=== PATIENT | female | born 1950 | race Caucasian/White ===

== ENCOUNTER 2020-06-27 | Outpatient (REF) | payer OTHER, SELFPAY | END 2020-06-27 00:01 | disposition home or self-care (01) | LOC: CF | PROVIDERS: Visit Provider Internal Medicine | DX: R19.7 Diarrhea, unspecified (principal); K21.9 Gastro-esophageal reflux disease without esophagitis; E78.5 Hyperlipidemia, unspecified; E55.9 Vitamin D deficiency, unspecified; I83.009 Varicose veins of unspecified lower extremity with ulcer of unspecified site; L97.909 Non-pressure chronic ulcer of unspecified part of unspecified lower leg with unspecified severity | CPT/HCPCS: 87045; 87046 ==

== ENCOUNTER 2020-07-05 11:13 | Outpatient (REF) | payer OTHER, SELFPAY ==
[2020-07-05 14:55] LABS: Leukocytes Stool Qualitative NEGATIVE (NEGATIVE)
[2020-07-05 15:02] LABS: CDIFF Ag Negative (Negative); CDIFF Internal ctrl Dots and bkg OK (V); CDiff Toxin Negative (Negative)
== END 2020-07-05 11:14 | disposition home or self-care (01) ==
LOC: CF 11:13
PROVIDERS: Visit Provider Internal Medicine
DX: R19.7 Diarrhea, unspecified (principal)
CPT/HCPCS: 87324; 87449; 89055

== ENCOUNTER 2020-09-17 06:51 | Outpatient (REF) | payer OTHER, SELFPAY ==
[2020-09-17 11:40] LABS: Hemoglobin 11.9 g/dl (12.0-16.0); Mean Corpuscular HGB Conc 31.3 g/dl (31.0-35.0); Mean Corpuscular Hemoglobin 29.2 pg (27.0-33.0); Mean Corpuscular Volume 93.1 fL (80-98); Mean Platelet Volume 10.9 fL (9.4-12.3); Platelet Count 261 X10*3/uL (160-400); Red Blood Count 4.08 X10*6/uL (4.20-5.50); Red Cell Distribution Width 13.7 % (11.0-16.0); White Blood Count 5.3 X10*3/uL (4.8-10.8)
[2020-09-17 12:13] LABS: Vitamin D 25-OH Total 31.5 ng/mL (>30)
[2020-09-17 12:20] LABS: Alanine Aminotransferase 17 U/L (0-31); Albumin Level 4.1 g/dL (3.5-5.0); Alkaline Phosphatase 79 U/L (39-117); Anion Gap 13 (12-20); Aspartate Amino Transferase 22 U/L (5-31); Bilirubin Total 0.3 mg/dL (0.0-1.0); Blood Urea Nitrogen 21 mg/dL (9-16); Calcium 9.5 mg/dL (8.4-10.2); Carbon Dioxide 26 mmol/L (22-29); Chloride 106 mmol/L (96-108); Cholesterol 209 mg/dL; Estimated Glomerular Filt Rate > 60; Glucose Fasting 114 mg/dL (60-99); HDL Cholesterol 96 mg/dL; LDL Cholesterol Calculated 102 mg/dl; Potassium 4.7 mmol/l (3.3-5.1); Sodium 140 mmol/L (135-145); Total Protein 6.4 g/dL (6.5-8.0); Triglycerides 59 mg/dL
== END 2020-09-17 06:52 | disposition home or self-care (01) ==
LOC: HO.HMGCLDS 06:51
PROVIDERS: PCP Internal Medicine; Visit Provider Internal Medicine
DX: I83.009 Varicose veins of unspecified lower extremity with ulcer of unspecified site (principal); L97.909 Non-pressure chronic ulcer of unspecified part of unspecified lower leg with unspecified severity; K21.9 Gastro-esophageal reflux disease without esophagitis; E55.9 Vitamin D deficiency, unspecified; R19.7 Diarrhea, unspecified; E78.5 Hyperlipidemia, unspecified
CPT/HCPCS: 36415; 80053; 80061; 82306; 84443; 85027

== ENCOUNTER 2020-10-21 08:26 | Outpatient (REF) | payer OTHER, SELFPAY ==
--- NOTE | ~2020-10-21 | US_ITS ---
EXAMINATION: US ABDOMEN COMPLETE CLINICAL INFORMATION: Abdominal pain. COMPARISON: Report from outside ultrasound November 2017. No images available. TECHNIQUE: Real-time imaging of the abdominal viscera. FINDINGS: PANCREAS: Normal. ABDOMINAL AORTA: The proximal, mid, and distal segments are normal in caliber. INFERIOR VENA CAVA: Visualized portions are normal. LIVER: Liver echotexture is normal. The liver is normal in size and contour. There is a 3 x 1.8 x 2.6 cm hyperechoic lesion in the central right lobe of the liver No other focal liver lesion is seen. There is no intrahepatic biliary duct dilatation seen. GALLBLADDER: Normal. The gallbladder is physiologically distended without evidence of stones, sludge, polyps, wall thickening or pericholecystic fluid. COMMON BILE DUCT: Normal in caliber measuring 0.5 cm in diameter. RIGHT KIDNEY: Normal. No hydronephrosis. No renal calculi or focal parenchymal lesions. The kidney measures 12.5 cm in maximum dimension. LEFT KIDNEY: Normal. No hydronephrosis. No renal calculi or focal parenchymal lesions. The kidney measures 11 cm in maximum dimension. SPLEEN: Normal. The spleen measures 9.2 cm in maximum dimension. FREE FLUID: None. US/US abdomen complete IMPRESSION: 3 x 1.8 x 2.6 cm hyperechoic lesion in the central right lobe of the liver. This may represent a hemangioma. This is not described in previous ultrasound report November 2017. If there is clinical history of liver disease or known malignancy, further evaluation with liver MRI should be considered.
== END 2020-10-21 08:27 | disposition home or self-care (01) ==
LOC: HO.HMGCX 08:26
PROVIDERS: PCP Internal Medicine; Visit Provider Internal Medicine
DX: R10.9 Unspecified abdominal pain (principal)
CPT/HCPCS: 76700

== ENCOUNTER 2020-10-30 18:48 | Outpatient (REF) | payer OTHER, SELFPAY ==
--- NOTE | ~2020-10-30 | MR_ITS ---
EXAMINATION: MR ABDOMEN WITHOUT AND WITH CONTRAST CLINICAL INFORMATION: History abdominal pain. Ultrasound notes subcapsular hyperechoic echogenicity in liver adjacent to krishna hepatis measuring 3.0 x 2.6 x 1.8 cm. COMPARISON: Abdominal ultrasound 10/21/2020 TECHNIQUE: MR abdomen was performed without and with use of 8.5 mL intravenous Gadavist gadolinium contrast. Postcontrast images are performed in multiphase dynamic sequences. Imaging was performed in 3 planes. FINDINGS: LUNG BASES: The visualized lung bases are unremarkable. LIVER, GALLBLADDER, AND BILIARY TREE: The liver is normal in size and smooth in contour and normal in parenchymal signal. The finding on ultrasound corresponds to focal hepatic steatosis adjacent to krishna hepatis posterior left lobe segment 4 measuring approximately 2.3 x 1.3 cm. This shows decreased signal on out of phase imaging. No abnormal enhancement. There are 3 small cysts in the liver, largest segment 4B left lobe subcapsular measuring 1.8 cm. There is also a subcentimeter cyst segment 2 left lobe and segment 5 moe lateral right lobe. There is no enhancing hepatic lesion or lesion with delayed washout. No intrahepatic ductal dilatation. The gallbladder is unremarkable with no evidence of gallbladder wall thickening, or obvious pericholecystic inflammatory changes. PANCREAS: Unremarkable. SPLEEN: Normal. ADRENAL GLANDS: Normal. KIDNEYS AND URETERS: The kidneys are normal in size, shape, and enhance symmetrically. No hydronephrosis. No perinephric stranding. GASTROINTESTINAL TRACT: Small sliding hiatal hernia just under 3 cm. No bowel obstruction or inflammatory changes in bowel or mesentery. No ascites or fluid collection. ABDOMINAL WALL: Small fat-containing umbilical hernia, under 3 cm. LYMPH NODES: No lymphadenopathy. VASCULAR: Unremarkable. OSSEOUS STRUCTURES: Marrow signal normal. MR/MR abdomen wo/w con IMPRESSION: 1. Finding on recent ultrasound corresponds to focal hepatic steatosis/focal fatty infiltration. There are 3 simple cysts in the liver, largest 1.8 cm. No enhancing lesion. 2. Small sliding hiatal hernia. Small fat-containing umbilical hernia.
== END 2020-10-30 18:49 | disposition home or self-care (01) ==
LOC: HO.MRI 18:48
PROVIDERS: Visit Provider Internal Medicine
DX: R16.0 Hepatomegaly, not elsewhere classified (principal)
CPT/HCPCS: 74183; A9585

== ENCOUNTER → 2020-11-19 11:32 | Outpatient (BNVA) | payer OTHER, SELFPAY | PROVIDERS: PCP Internal Medicine; Visit Provider Nurse Practitioner ==

== ENCOUNTER → 2020-12-03 13:18 | Outpatient (BNVA) | payer OTHER, SELFPAY | PROVIDERS: PCP Internal Medicine; Visit Provider Nurse Practitioner ==

== ENCOUNTER → 2021-01-02 08:19 | Outpatient (BNVA) | payer OTHER, SELFPAY | PROVIDERS: PCP Internal Medicine; Visit Provider Nurse Practitioner ==

== ENCOUNTER 2021-01-13 10:01 | Day surgery (SDC) | payer OTHER, SELFPAY ==
--- NOTE | 2021-01-09 13:35 | P.CONAN_ITS ---
Documented by User: Kay Green 01/09/21 13:36 HPI - Anesthesia Eval Consult details Narrative: 70yo F for Upper Endoscopy PMFSH Active Problems Active Problems: All Active Problems (Updated 01/02/21 @ 09:27 by JONNY Ruvalcaba) WOODS (nonalcoholic steatohepatitis) (Acute) Epigastric pain (Acute) Hyperglycemia (Acute) Osteoporosis (Acute) Abdominal pain (Acute) Cellulitis (Acute) Hyperlipidemia (Acute) Venous ulcer (Acute) History of mammogram (Acute) GERD (gastroesophageal reflux disease) (Acute) Vitamin D deficiency (Acute) Diarrhea (Acute) Past Medical History Medical History Abdominal pain Diarrhea GERD (gastroesophageal reflux disease) History of mammogram Hyperglycemia Hyperlipidemia Osteoporosis Venous ulcer Vitamin D deficiency Family History Family History Mother No problems noted. Sister Breast cancer Brother Parkinson disease Father Gallbladder cancer Surgical History Surgical History H/O colonoscopy History of left knee replacement Status post right knee replacement Social History Social History Household Members Other:: [employer]- LIVES WITH ANOTHER SISTER Alcohol intake: current Alcohol intake frequency: a few times a week Smoking Status: Never smoker Use of substances other than those prescribed or required for medical reasons: No Advance Directives: No Advance Directives Information Provided: No Advance Directives on File: No Nutrition Risks: No Nutritional Risk Current occupational status: employed 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 Allergies Allergy/AdvReac Type Severity Reaction Status Date / Time atorvastatin [Lipitor] Allergy Unknown Myalgia Verified 01/02/21 08:19 codeine Allergy Unknown unknown Verified 01/02/21 08:19 Home Medications Medication Instructions Recorded Confirmed Last Taken Type rosuvastatin 5 mg tablet 5 mg PO DAILY 06/10/20 11/04/20 Unknown History calcium carbonate 400 mg calcium 400 mg PO BEDTIME 12/03/20 Unknown History (1,000 mg) chewable tablet Exam Exam Date and Time: January 09, 2021 1335 Assessment and Plan Assessment Anesthesia Assessment: Chart Reviewed Documented by User: Alexandra Jay 01/13/21 11:16 [facility] Past Medical History Medical History Abdominal pain Diarrhea GERD (gastroesophageal reflux disease) History of mammogram Hyperglycemia Hyperlipidemia Osteoporosis Venous ulcer Vitamin D deficiency Family History Family History Mother No problems noted. Sister Breast cancer Brother Parkinson disease Father Gallbladder cancer Family history of problems with anesthesia: No Surgical History Surgical History H/O colonoscopy History of left knee replacement Status post right knee replacement History of Problems with Anesthesia: No Social History Social History Household Members Other:: [employer]- LIVES WITH ANOTHER SISTER Alcohol intake: current Alcohol intake frequency: a few times a week Smoking Status: Never smoker Use of substances other than those prescribed or required for medical reasons: No Advance Directives: No Advance Directives Information Provided: No Advance Directives on File: No Nutrition Risks: No Nutritional Risk Current occupational status: employed 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 Allergies Allergy/AdvReac Type Severity Reaction Status Date / Time atorvastatin [Lipitor] Allergy Unknown Myalgia Verified 01/02/21 08:19 codeine Allergy Unknown unknown Verified 01/02/21 08:19 Home Medications Medication Instructions Recorded Confirmed Last Taken Type rosuvastatin 5 mg tablet 5 mg PO DAILY 06/10/20 11/04/20 Unknown History calcium carbonate 400 mg calcium 400 mg PO BEDTIME 12/03/20 Unknown History (1,000 mg) chewable tablet Exam Height,Weight and Vital Signs: Vital Signs Temp Pulse Resp BP Pulse Ox 01/13/21 10:53 97.8 F 75 19 149/74 H 100 Airway Mallampati Class: II TM Dist: >3cm Neck ROM: Full Partial: Lower Heart: RRR+ murmur Lungs: CTAB Assessment and Plan Assessment Anesthesia Assessment: Anesthesia Plan Discussed and Chart Reviewed Final Anesthetic Review NPO: Yes ASA Class: III Final Preanesthetic Review: No Changes in Pt Med Stat, Meds/Allgs Chart Reviewed, Consent Obtained/Reviewed and Anes Risks/Benef Reviewed Patient Risk: Intermediate Procedure Risk: Low Assessment/Block/Sedation in SS: Assess/Block/Sedation-SS Anesthetic Plan Anesthetic Plan: MAC: Disposition: Standard PACU
--- NOTE | 2021-01-13 10:50 | MHC.SHP ---
Pre-Procedural Eval Section B Chief Complaint: Epigastric Pain Relevant Family History (Specify if Yes): No Relevant Social History: None Present Medications: see Short Stay Collaborative assessment Medical History: Significant History (Abdominal pain Diarrhea GERD (gastroesophageal reflux disease) History of mammogram Hyperglycemia Hyperlipidemia Osteoporosis Venous ulcer Vitamin D deficiency) History of Previous Operations: Relevant previous surgery/procedure and date(s) (knee surgeries) Allergies: Allergies Allergy/AdvReac Type Severity Reaction Status Date / Time atorvastatin [Lipitor] Allergy Unknown Myalgia Verified 01/02/21 08:19 codeine Allergy Unknown unknown Verified 01/02/21 08:19 Review of Systems Sugical H&P ROS: Negative: Constitution, Cardiovascular, Respiratory, Neurological, Psychiatric, Hem-Onc, Allergic/Immunologic, Gastrointestinal, Genitourinary, Musculoskeletal, Integumentary, Endocrine and Eyes/Ears/Nose/Throat Exam Surgical H&P Exam: Normal: HEENT, Normal: Heart, Normal: Lungs, Normal: Extremities, Normal: Abdomen, Normal: Skin and Normal: Neurological Plan Diagnosis/Plan: Unchanged I have reviewed the history and physical and performed a pertinent physical examination on my patient. No changes have occurred unless specified.
[2021-01-13 10:53] VITALS: BP 149/74; PULSE 75; RESP 19; TEMP 36.6; O2SAT 100; BMI 31.8
--- NOTE | 2021-01-13 11:26 | PM.OP ---
Brief Operative Note Date of Service: 01/13/21 Pre-op diagnosis: epigastric pain Post-op diagnosis: same Procedure: see op note Surgeon: Rolando Irving MD Anesthesia: MAC Was an Corporate Communications Manager used for this Procedure?: No Estimated blood loss (mL): 0 Condition: stable Disposition: PACU
--- NOTE | 2021-01-13 11:26 | W.PM.OPN ---
Operative Note Operative Note Date of Service: 01/13/21 Narrative: Procedure Description: EGD FLEXIBLE TRANSORAL UPPER GASTROINTESTINAL ENDOSCOPY UPPER ENDOSCOPY Consent: Indications for the procedure and potential complications of bleeding, perforation, reaction to medications and missed diagnosis were discussed with the patient and informed consent was obtained. Instrument: Olympus GIF H 190 J mid size upper endoscope Monitoring: Vital signs and clinical assessment, continuous EKG monitoring, Pulse oximetry, Carbon Dioxide monitoring and blood pressure monitoring were done throughout the procedure. Procedure: The patient was placed in the left lateral decubitis position and pre-procedure medications were administered and a bite block was placed. The endoscope was inserted into the mouth and advanced under direct vision to the third part of duodenum. A careful inspection was made as the upper endoscope was withdrawn including a retroflexed examination of the proximal stomach; Findings and interventions are described below. Findings: Larynx:normal Esophagus: GE junction at 34 cm, diaphragm hiatus at 37 cm, consistent with 3 cm sliding hiatal hernia, no varices or esophagitis. Non obstructive schatzki ring noted Stomach: Patchy gastric erythema. Biopsies were obtained. Grade 2 flap valve on retroflexed examination of the cardia. Duodenum: Normal bulb and descending duodenum, bx taken Intervention: Biopsies as noted above Impression/Findings: gastritis schatzki ring hiatal hernia PLAN: reflux precautions await bx results
[2021-01-13 11:41] VITALS: BP 109/68; PULSE 75; RESP 12; TEMP 36.2; O2SAT 99
[2021-01-13 11:56] VITALS: BP 138/68; PULSE 74; RESP 20; TEMP 36.2; O2SAT 100
== END 2021-01-13 12:34 | disposition home or self-care (01) ==
PROVIDERS: PCP Internal Medicine; Visit Provider Internal Medicine Gastroenterology
PROC: 0DJ08ZZ Inspection of Upper Intestinal Tract, Via Natural or Artificial Opening Endoscopic (ICD-10-PCS; CPT 43235; principal; 2021-01-13 11:40)
DX: K22.2 Esophageal obstruction (principal); K29.50 Unspecified chronic gastritis without bleeding; K44.9 Diaphragmatic hernia without obstruction or gangrene; K21.9 Gastro-esophageal reflux disease without esophagitis; R73.9 Hyperglycemia, unspecified
CPT/HCPCS: 43239; 88305; 88342

== ENCOUNTER → 2021-02-13 07:51 | Outpatient (REF) | payer OTHER, SELFPAY ==
--- NOTE | ~2021-02-13 | NM_ITS ---
EXAMINATION: NM HIDA SCAN WITH CCK CLINICAL INFORMATION: Epigastric pain. COMPARISON: MRI abdomen 10/31/2020 TECHNIQUE: Following intravenous administration of 5 mCi of 99m technetium, mebrofenin was administered and imaging over the right upper quadrant was obtained up to 60 minutes. At 60 minutes, 4.6 mcg of CCK was given, and further imaging was obtained up to 30 minutes. FINDINGS: There is normal hepatic uptake without any focal defects. There is prompt visualization of gallbladder by 11 minutes and small bowel by 20 minutes. Post CCK, the gallbladder ejection fraction at 30 minutes is 81%. NM/NM hepatobiliary w pharm IMPRESSION: Normal hepatic uptake. Patent cystic duct. Patent CBD. Normal gallbladder ejection fraction of 81% at 30 minutes post CCK injection.
== END ==
LOC: HO.NUCMED 07:51
PROVIDERS: Visit Provider Nurse Practitioner
DX: R10.13 Epigastric pain (principal)
CPT/HCPCS: 78227; A9537

== ENCOUNTER → 2021-02-24 08:57 | Outpatient (BNVA) | payer OTHER, SELFPAY | PROVIDERS: Visit Provider Nurse Practitioner ==

== ENCOUNTER 2021-03-26 06:53 | Outpatient (REF) | payer OTHER, SELFPAY ==
[2021-03-26 11:21] LABS: Hematocrit 32.8 % (37-47); Hemoglobin 9.9 g/dl (12.0-16.0); Mean Corpuscular HGB Conc 30.2 g/dl (31.0-35.0); Mean Corpuscular Hemoglobin 25.6 pg (27.0-33.0); Mean Corpuscular Volume 84.8 fL (80-98); Mean Platelet Volume 10.2 fL (9.4-12.3); Platelet Count 293 X10*3/uL (160-400); Red Blood Count 3.87 X10*6/uL (4.20-5.50); Red Cell Distribution Width 14.5 % (11.0-16.0); White Blood Count 5.3 X10*3/uL (4.8-10.8)
[2021-03-26 11:37] LABS: Estimated Average Glucose 137 mg/dL; Hemoglobin A1c % 6.4 %
[2021-03-26 12:12] LABS: Vitamin D 25-OH Total 30.5 ng/mL (>30)
[2021-03-26 12:15] LABS: Alanine Aminotransferase 10 U/L (0-31); Albumin Level 3.9 g/dL (3.5-5.0); Alkaline Phosphatase 89 U/L (39-117); Anion Gap 13 (12-20); Aspartate Amino Transferase 19 U/L (5-31); Bilirubin Total 0.3 mg/dL (0.0-1.0); Blood Urea Nitrogen 15 mg/dL (9-16); Carbon Dioxide 26 mmol/L (22-29); Chloride 108 mmol/L (96-108); Cholesterol 202 mg/dL; Estimated Glomerular Filt Rate > 60; Glucose Fasting 108 mg/dL (60-99); HDL Cholesterol 98 mg/dL; LDL Cholesterol Calculated 93 mg/dl; Potassium 4.6 mmol/L (3.3-5.1); Sodium 142 mmol/L (135-145); Total Protein 6.3 g/dL (6.5-8.0); Triglycerides 59 mg/dL
== END 2021-03-26 06:54 | disposition home or self-care (01) ==
LOC: HO.HMGCLDS 06:53
PROVIDERS: PCP Internal Medicine; Visit Provider Internal Medicine
DX: E55.9 Vitamin D deficiency, unspecified (principal); E78.5 Hyperlipidemia, unspecified; K21.9 Gastro-esophageal reflux disease without esophagitis; M81.0 Age-related osteoporosis without current pathological fracture; R73.9 Hyperglycemia, unspecified
CPT/HCPCS: 36415; 80053; 80061; 82306; 83036; 85027

== ENCOUNTER 2021-03-31 08:51 | Outpatient (REF) | payer OTHER, SELFPAY ==
[2021-03-31 11:35] LABS: Iron 34 mcg/dL (30-160); Percent Iron Saturation 8 % (15-50); Total Iron Binding Capacity 407 mcg/dL (228-428); Unsaturated Iron Binding 373 ug/dL
== END 2021-03-31 08:52 | disposition home or self-care (01) ==
LOC: HO.HMGCLDS 08:51
PROVIDERS: PCP Internal Medicine; Visit Provider Internal Medicine
DX: E78.5 Hyperlipidemia, unspecified (principal); R73.9 Hyperglycemia, unspecified
CPT/HCPCS: 36415; 83540

== ENCOUNTER → 2021-04-04 15:49 | Outpatient (BNVA) | payer OTHER, SELFPAY | PROVIDERS: PCP Internal Medicine; Referring Provider Internal Medicine; Visit Provider Nurse Practitioner ==

== ENCOUNTER → 2021-05-01 15:26 | Outpatient (BNVA) | payer OTHER, SELFPAY | PROVIDERS: PCP Internal Medicine; Referring Provider Internal Medicine; Visit Provider Surgery Vascular Surgery ==

== ENCOUNTER 2021-05-21 07:57 | Outpatient (REF) | payer OTHER, SELFPAY ==
--- NOTE | ~2021-05-21 | US_ITS ---
EXAMINATION: US LOWER EXTREMITY VENOUS (REFLUX EXAM), BILATERAL CLINICAL INDICATION: Lower extremity varicose veins. COMPARISON: None. TECHNIQUE: Color flow triplex imaging and compression Doppler was performed to evaluate both the deep and the superficial systems bilaterally. To evaluate the superficial system, the examination was performed in the upright position. Color-flow Doppler ultrasound and compression ultrasound were utilized. In addition, maneuvers were utilized to demonstrate reflux. FINDINGS: 1. DEEP VENOUS ULTRASOUND OF THE RIGHT LOWER EXTREMITY: Common Femoral Vein: Compressible, normal respiratory variation and augmented flow. Femoral vein: Compressible, normal color flow and augmentation. Popliteal Vein: Compressible, normal augmentation. Deep Reflux: There is no evidence of reflux in the deep system in either the common femoral vein or the popliteal vein. There is no evidence of a Welch's cyst. 2. SUPERFICIAL ULTRASOUND WITH DOPPLER OF RIGHT LOWER EXTREMITY GREAT SAPHENOUS VEIN: Saphenofemoral junction: 0.6 cm; Reflux: 1.1 seconds Proximal thigh: 0.7 cm; Reflux: 1.2 seconds Mid thigh: 0.6 cm; Reflux: 2 seconds Above knee: 0.6 cm; Reflux: 3 seconds At knee: 0.3 cm; Reflux: No evidence of reflux. Below knee: 0.5 cm; Reflux: No evidence of reflux. Mid calf: 0.2 cm; Reflux: No evidence of reflux. Ankle: 0.2 cm; Reflux: No evidence of reflux. DUPLICATED GREAT SAPHENOUS VEIN: Medial: 0.4 cm, no reflux SMALL SAPHENOUS VEIN: Saphenopopliteal junction: 0.2 cm; No evidence of reflux. Mid calf: 0.3 cm; No evidence of reflux. Distal calf: 0.3 cm; No evidence of reflux. VEIN OF GIACOMINI: None Imaged. PERFORATORS: Proximal calf: 0.4 cm, no reflux Midcalf: 0.3 cm, no reflux VARICOSITIES: Mid thigh: 0.3 cm, no reflux Distal thigh: 0.5 cm, greater than 1.3 seconds of reflux Proximal calf: 0.4 cm, no reflux 3. DEEP VENOUS ULTRASOUND OF THE LEFT LOWER EXTREMITY: Common Femoral Vein: Compressible, normal respiratory variation and augmented flow. Femoral vein: Compressible, normal color flow and augmentation. Popliteal Vein: Compressible, normal augmentation. Deep Reflux: There is greater than 1.1 seconds of reflux within the left common femoral vein. There is no evidence of a Welch's cyst. 4. SUPERFICIAL ULTRASOUND WITH DOPPLER OF LEFT LOWER EXTREMITY GREAT SAPHENOUS VEIN: Saphenofemoral junction: 1.1 cm; Reflux: 0.6 seconds of reflux. Proximal thigh: 0.6 cm; Reflux: 0.7 cm of reflux. Mid thigh: 0.5 cm; Reflux: 2.5 seconds of reflux Above knee: 0.4 cm; Reflux: 3.2 seconds At knee: 0.2 cm; Reflux: 2.2 seconds Below knee: 0.3 cm; Reflux: No evidence of reflux. Mid calf: 0.2 cm; Reflux: No evidence of reflux. Ankle: 0.1 cm; Reflux: 2.6 seconds DUPLICATED GREAT SAPHENOUS VEIN: Medial: 0.3 cm, no reflux SMALL SAPHENOUS VEIN: Saphenopopliteal junction: 0.2 cm; No evidence of reflux. Mid calf: 0.2 cm; No evidence of reflux. Distal calf: 0.2 cm; No evidence of reflux. VEIN OF GIACOMINI: None Imaged. PERFORATORS: Midcalf: 0.2 cm, no reflux VARICOSITIES: Mid thigh: 0.3 cm, greater than 2.6 seconds of reflux Distal thigh: 0.3 cm, greater than 2.3 seconds of reflux At knee: 0.3 cm, greater than 2.6 seconds of reflux US/US venous duplex LE BI IMPRESSION: 1. Bilateral great saphenous venous insufficiency beginning at the junction. 2. No evidence of small saphenous venous insufficiency. 3. Bilateral refluxing varicosities. 4. Deep venous insufficiency involving the left common femoral vein. 5. No evidence of DVT.
== END 2021-05-21 07:58 | disposition home or self-care (01) ==
LOC: HO.US 07:57
PROVIDERS: PCP Internal Medicine; Visit Provider Surgery Vascular Surgery
DX: I83.893 Varicose veins of bilateral lower extremities with other complications (principal)
CPT/HCPCS: 93970

== ENCOUNTER → 2021-06-03 12:55 | Outpatient (BNVA) | payer OTHER, SELFPAY | PROVIDERS: PCP Internal Medicine; Visit Provider Surgery Vascular Surgery ==

== ENCOUNTER → 2021-06-10 08:47 | Outpatient (BNVA) | payer OTHER, SELFPAY | PROVIDERS: PCP Internal Medicine; Referring Provider Internal Medicine; Visit Provider Nurse Practitioner ==

== ENCOUNTER 2021-06-11 09:18 | Outpatient (REF) | payer OTHER, SELFPAY ==
[2021-06-11 09:52] LABS: Amylase 37 U/L (28-100); Blood Urea Nitrogen 12 mg/dL (9-16); Estimated Glomerular Filt Rate > 60; Lipase 6 U/L (8-78)
== END 2021-06-11 09:19 | disposition home or self-care (01) ==
LOC: HO.LAB 09:18
PROVIDERS: PCP Internal Medicine; Visit Provider Nurse Practitioner
DX: R10.9 Unspecified abdominal pain (principal)
CPT/HCPCS: 36415; 82150; 82565; 83690; 84520

== ENCOUNTER 2021-06-11 16:20 | Emergency (ER) | payer OTHER, SELFPAY ==
--- NOTE | ~2021-06-11 | XR_ITS ---
EXAMINATION: XR CHEST CLINICAL INFORMATION: Chest pain. COMPARISON: None TECHNIQUE: Frontal view of the chest was obtained. FINDINGS: The lungs are clear. The cardiomediastinal silhouette is normal in size. There is no pleural effusion or pneumothorax. No acute osseous abnormality. XR/XR chest 1V IMPRESSION: No acute cardiopulmonary findings.
--- NOTE | 2021-06-11 16:33 | ECG_ITS ---
Test Reason : CHEST PAIN Blood Pressure : / mmHG Vent. Rate : 089 BPM Atrial Rate : 089 BPM P-R Int : 178 ms QRS Dur : 086 ms QT Int : 334 ms P-R-T Axes : 043 009 005 degrees QTc Int : 406 ms Normal sinus rhythm Minimal voltage criteria for LVH, may be normal variant Borderline ECG No previous ECGs available Referred By: Generic ED Physician Electronically Signed By:LORENZA STRATTON
[2021-06-11 16:45] LABS: MANUAL DIFF FLAG NO
[2021-06-11 16:46] LABS: Basophils Percent Auto 0.6 % (0-2); Eosinophils Absolute Auto 0.1 X10*3/uL (0.0-0.4); Hematocrit 34.6 % (37-47); Hemoglobin 10.7 g/dl (12.0-16.0); Imm Gran Abs Auto 0.02 X10*3/uL (0.00-0.03); Imm Gran Pct Auto 0.3 % (0.0-0.4); Lymphocytes Absolute Auto 0.9 X10*3/uL (1.2-4.9); Lymphocytes Percent Auto 13.7 % (20-40); Mean Corpuscular HGB Conc 30.9 g/dl (31.0-35.0); Mean Corpuscular Hemoglobin 25.1 pg (27.0-33.0); Mean Platelet Volume 9.7 fL (9.4-12.3); Monocytes Absolute Auto 0.6 X10*3/uL (0.1-1.2); Monocytes Percent Auto 8.3 % (2-11); Neutrophils Absolute Auto 5.2 X10*3/uL (2.0-8.3); Neutrophils Percent Auto 76.1 % (45-73); Platelet Count 398 X10*3/uL (160-400); Red Blood Count 4.27 X10*6/uL (4.20-5.50); Red Cell Distribution Width 15.3 % (11.0-16.0); White Blood Count 6.8 X10*3/uL (4.8-10.8)
[2021-06-11 17:01] LABS: Anion Gap 12 (12-20); Blood Urea Nitrogen 12 mg/dL (9-16); Calcium 10.5 mg/dL (8.4-10.2); Carbon Dioxide 26 mmol/L (22-29); Chloride 106 mmol/L (96-108); Estimated Glomerular Filt Rate > 60; Glucose Random 117 mg/dL (60-115); Potassium 4.5 mmol/L (3.3-5.1); Sodium 139 mmol/L (135-145)
[2021-06-11 17:04] LABS: Troponin-I High Sensitivity < 3.5 ng/L (<3.5-17.0)
[2021-06-11 18:16] VITALS: BP 150/78; PULSE 88; RESP 16; TEMP 36.3; O2SAT 98; BMI 31.8
--- NOTE | 2021-06-11 19:50 | ED_ITS ---
HPI - Chest Pain General Chief Complaint: Chest Pain Stated Complaint: Chest pain Time Seen by Provider: 06/11/21 19:50 Source: patient Mode of arrival: ambulatory Limitations: no limitations History of Present Illness HPI narrative: Patient with history of sliding hiatal hernia seen in endoscopy 01/24 complaining of epigastric and mid chest pain off and on for last 3 months her PCP os her to go to the hospital for further evaluation patient denies any chest pain at this time pain gets worse after eating no radiation of pain to the jaw or arm no diaphoresis no nausea no vomiting patient has no known coronary ar kayla disease. Patient taking Protonix 80 mg daily for hiatal hernia Related Data Home Medications Medication Instructions Recorded Confirmed cholecalciferol (vitamin D3) 50 100 mcg PO DAILY 03/31/21 03/31/21 mcg (2,000 unit) capsule lactobacillus combination no.4 3 3,000 mmu cells PO DAILY 03/31/21 03/31/21 billion cell capsule (Probiotic) iron, carbonyl 15 mg chewable 15 mg PO BEDTIME 06/10/21 tablet (Iron Chews) Previous Rx's Medication Instructions Recorded rosuvastatin 5 mg tablet 5 mg PO DAILY #90 tab 04/01/21 pantoprazole 40 mg tablet,delayed 40 mg PO BID 30 Days #60 tab 04/03/21 release (Protonix) simethicone 180 mg capsule 180 mg PO BID PRN 30 Days #60 cap 04/04/21 Allergies Allergy/AdvReac Type Severity Reaction Status Date / Time atorvastatin [Lipitor] Allergy Unknown Myalgia Verified 06/10/21 08:49 codeine Allergy Unknown unknown Verified 06/10/21 08:49 Review of Systems Review of Systems: Yes all other systems are reviewed and are negative [facility] Past Medical History Medical History Anemia Diarrhea GERD (gastroesophageal reflux disease) History of mammogram Hyperglycemia Hyperglycemia Hyperlipidemia Osteoporosis Venous insufficiency Venous ulcer Vitamin D deficiency Surgical History H/O colonoscopy History of left knee replacement Status post right knee replacement Family History Family History Mother No problems noted. 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 Oriented X3. No acute distress. Eyes: No pallor or icterus ENT: Pharynx normal. Oral Mucosa moist Neck: Normal inspection. Neck supple. CVS: Normal heart rate and rhythm. Pulses normal. Respiratory: No respiratory distress. Equal air entry bilateral, no wheezing/rales/rhonchi Abdomen: Soft and mild epigastric tenderness. Bowel sounds are present, no mass palpable, no CVA tenderness Skin: Skin warm and dry. Normal skin color. Normal skin turgor. Extremities: No lower extremity edema. No calf tenderness Neuro: Oriented X 3. MDM - Chest Pain Medical Records Data Attestation: I reviewed the patient's medical records. Lab Data Attestation: I reviewed the patient's lab results. Result diagrams: 06/11/21 16:35 06/11/21 16:35 Labs: Lab Results 06/11/21 06/11/21 06/11/21 Range/Units 16:35 16:35 16:35 WBC 6.8 (4.8-10.8) X10*3/uL RBC 4.27 (4.20-5.50) X10*6/uL Hgb 10.7 L (12.0-16.0) g/dl Hct 34.6 L (37-47) % MCV 81.0 (80-98) fL MCH 25.1 L (27.0-33.0) pg MCHC 30.9 L (31.0-35.0) g/dl RDW 15.3 (11.0-16.0) % Plt Count 398 D (160-400) X10*3/uL MPV 9.7 (9.4-12.3) fL Immature Gran % (Auto) 0.3 (0.0-0.4) % Neut % (Auto) 76.1 H (45-73) % Lymph % (Auto) 13.7 L (20-40) % [place] % (Auto) 8.3 (2-11) % Eos % (Auto) 1.0 (0-4) % Baso % (Auto) 0.6 (0-2) % Lymph # (Auto) 0.9 L (1.2-4.9) X10*3/uL [place] # (Auto) 0.6 (0.1-1.2) X10*3/uL Eos # (Auto) 0.1 (0.0-0.4) X10*3/uL Baso # (Auto) 0.0 (0.0-0.2) X10*3/uL Abs Immat Gran (auto) 0.02 (0.00-0.03) X10*3/uL Absolute Neuts (auto) 5.2 (2.0-8.3) X10*3/uL Absolute Nucleated RBC 0.000 (0.0-0.012) X10*3/uL Nucleated RBC % (auto) 0.0 (0.0-0.2) /100WBC Sodium 139 (135-145) mmol/L Potassium 4.5 (3.3-5.1) mmol/L Chloride 106 (96-108) mmol/L Carbon Dioxide 26 (22-29) mmol/L Anion Gap 12 (12-20) BUN 12 (9-16) mg/dL Creatinine 0.79 (0.5-1.4) mg/dL Estim Creat Clear Calc TNP Estimated GFR > 60 Random Glucose 117 H (60-115) mg/dL Calcium 10.5 H (8.4-10.2) mg/dL Troponin I High Sens < 3.5 (<3.5-17.0) ng/L ECG Data ECG #1: Attestation: I personally reviewed and interpreted this ECG as follows: Interpretation: Normal sinus rhythm heart rate 89 beats per minute LVH no acute ST-T change and no acute ischemia Discharge Plan Discharge Clinical Impression: Hernia, hiatal Chest pain Qualifiers: Chest pain type: precordial pain Qualified Code(s): R07.2 - Precordial pain Patient Disposition: Home, Self-Care Instructions: Chest Pain (ED), Hiatal Hernia (ED) Additional Instructions: Continue medication and follow with arboreal scientist Also follow with museum informatics specialist if chest pain continues for further evaluation including stress test Prescriptions: No Action rosuvastatin 5 mg tablet 5 mg PO DAILY Qty: 90 RF: 3 pantoprazole [Protonix] 40 mg tablet,delayed release (DR/EC) 40 mg PO BID 30 Days Qty: 60 RF: 3 cholecalciferol (vitamin D3) 50 mcg (2,000 unit) capsule 100 mcg PO DAILY RF: 0 Probiotic 3 billion cell capsule 3,000 mmu cells PO DAILY RF: 0 simethicone 180 mg capsule 180 mg PO BID PRN (Reason: abdominal distention) 30 Days Qty: 60 RF: 3
== END 2021-06-11 20:16 | disposition home or self-care (01) ==
PROVIDERS: Emergency Provider Internal Medicine; PCP Internal Medicine
DX: K44.9 Diaphragmatic hernia without obstruction or gangrene (principal); R07.2 Precordial pain; Z79.899 Other long term (current) drug therapy
CPT/HCPCS: 36415; 71045; 80048; 84484; 85025; 93005; 99283

== ENCOUNTER 2021-06-16 10:16 | Emergency (ER) | payer OTHER, SELFPAY ==
--- NOTE | ~2021-06-16 | CT_ITS ---
EXAMINATION: CT ABDOMEN AND PELVIS WITH CONTRAST CLINICAL INFORMATION: Abdominal distention COMPARISON: Abdominal ultrasound and abdominal MRI October 2020 TECHNIQUE: Multidetector volumetric images were obtained from the superior aspect of the liver through the pubic symphysis following administration 85 mL of Omnipaque 350 intravenous contrast. Sagittal and coronal reformatted images were obtained on the technologist's workstation. Oral contrast: Yes This CT examination was performed using dose optimization techniques as appropriate, variously including the following: *Automated exposure control *Adjustment of mA and/or kV according to patient size (this includes techniques or standardized protocols for targeted exams where dose is matched to indication/reason for exam; i.e. extremities or head) *Use of iterative reconstruction technique DLP: 7-8 mGy-cm FINDINGS: LUNG BASES: There are tiny bilateral pleural effusions. LIVER, GALLBLADDER, AND BILIARY TREE: The liver is normal in size, shape, and attenuation. There is a small 5 x 10 mm low-attenuation lesion in the right lobe of the liver axial image 22 series 3. There is a 1.8 cm low-attenuation lesion in the medial segment of the left lobe of the liver axial image 28 series 3. These probably represent small cysts. No other focal liver lesion is seen. There are peritoneal soft tissue nodules adjacent to the gallbladder. The gallbladder is otherwise unremarkable. PANCREAS: Pancreas appears atrophic. There is a cyst or a cystic lesion in the pancreas for example measuring 1.7 cm at the junction of the body and tail the pancreas axial image 26 series 3. There is also question of a smaller a cyst or cystic lesions in the uncinate process of the head of the pancreas, largest measuring 1 cm axial image 33 series 3. The main pancreatic duct does not appear dilated. SPLEEN: Unremarkable. ADRENAL GLANDS: Unremarkable. KIDNEYS AND URETERS: The kidneys are normal in size, shape, and attenuation. No hydronephrosis, hydroureter, or calculi seen. No perinephric stranding. BLADDER: Unremarkable. GASTROINTESTINAL TRACT: There is diverticulosis of the colon. There is wall thickening of the cecum. There is a cystic area seen within measures 2 cm axial image 63 series 3 The appendix is not identified. The small bowel is unremarkable. There is a small amount of ascites in the abdomen and pelvis. There are numerous peritoneal soft tissue nodules, largest measuring 2.2 cm in the right lower quadrant axial image 69 series 3 and 1.4 x 2.4 cm region of the greater omentum axial image 35 series 3. There also appears to be thickening and diffuse nodularity of the greater omentum. Findings are suggestive of peritoneal carcinomatosis. There is an esophageal hernia. ABDOMINAL WALL: There is a small umbilical hernia containing fat. LYMPH NODES: There multiple enlarged right lower quadrant small bowel mesentery lymph nodes. The largest measures 2 cm axial image 50 series 3. VASCULAR: Unremarkable. PELVIC VISCERA: Unremarkable. OSSEOUS STRUCTURES: There is mild anterior subluxation of L4 with respect L5. There is lower lumbar spine facet arthritis. There is a 7 x 10 mm sclerotic lesion in the left iliac bone. CT/CT abdomen pelvis w con IMPRESSION: Wall thickening and cystic mass in the cecum. The appendix is not identified. There are enlarged right lower quadrant small bowel mesentery lymph nodes, ascites and numerous peritoneal nodules suggestive of peritoneal carcinomatosis. Primary appendiceal tumor, primary cecal tumor and carcinoid should be considered. Atrophic-appearing pancreas. Small cysts or cystic lesions in the pancreas. Probable liver cysts. Mild diverticulosis of the colon.
[2021-06-16 10:32] VITALS: BP 154/94; PULSE 102; RESP 18; TEMP 37.2; O2SAT 98; BMI 31.8
--- NOTE | 2021-06-16 11:37 | ED.ABDPAIN ---
HPI - Abdominal Pain General Chief Complaint: Abdominal Pain Stated Complaint: abd pain Time Seen by Provider: 06/16/21 11:36 Source: patient Mode of arrival: ambulatory Limitations: no limitations History of Present Illness HPI narrative: patient with known hiatal hernia, has had nausea, just not eating well. Patient states she has 2-3 weeks of symptoms. Patient states that she noticed recent tarry stool. Had blood around the stool. Patient was seen night for her heart and was discharged home MD elicited complaint: abdominal pain Pertinent past history: other (hiatal hernia) Onset (ago): month(s) Pain Consistency: constant Location: diffuse Severity: mild Exacerbating factors: nothing Relieving factors: nothing Associated symptoms: nausea Related Data Home Medications Medication Instructions Recorded Confirmed cholecalciferol (vitamin D3) 50 100 mcg PO DAILY 03/31/21 03/31/21 mcg (2,000 unit) capsule lactobacillus combination no.4 3 3,000 mmu cells PO DAILY 03/31/21 03/31/21 billion cell capsule (Probiotic) iron, carbonyl 15 mg chewable 15 mg PO BEDTIME 06/10/21 tablet (Iron Chews) Previous Rx's Medication Instructions Recorded rosuvastatin 5 mg tablet 5 mg PO DAILY #90 tab 04/01/21 pantoprazole 40 mg tablet,delayed 40 mg PO BID 30 Days #60 tab 04/03/21 release (Protonix) simethicone 180 mg capsule 180 mg PO BID PRN 30 Days #60 cap 04/04/21 barium sulfate 2 % (w/v) oral 450 ml PO DIRECTED 1 Days #900 06/13/21 suspension (Readi-Cat 2) ml sennosides 8.6 mg capsule (senna) 17.2 mg PO BEDTIME 30 Days #60 cap 06/13/21 Allergies Allergy/AdvReac Type Severity Reaction Status Date / Time atorvastatin [Lipitor] Allergy Unknown Myalgia Verified 06/10/21 08:49 codeine Allergy Unknown unknown Verified 06/10/21 08:49 Review of Systems Constitutional: Reports no additional constitutional complaints Eyes: Reports no additional eye complaints Denies dizziness Cardiovascular: Reports no additional cardiovascular complaints Respiratory: Reports as per HPI Gastrointestinal: Reports no additional gastrointestinal complaints Genitourinary: Reports no additional female genitourinary complaints Musculoskeletal: Reports no additional musculoskeletal complaints Skin/Breast: Denies rash Reports system reviewed and no additional complaints, except as documented, Denies dizziness and Denies Sensory deficit (Neuro) Psychiatric: Denies anxiety Physical Exam Vital Signs: Vital Signs: Last Vital Signs Temp 97.8 F 06/16/21 14:19 Pulse 11 L 06/16/21 14:19 Resp 18 06/16/21 14:19 BP 146/77 H 06/16/21 14:19 Pulse Ox 96 06/16/21 14:19 Body Mass Index 31.8 Const: General: healthy appearing Nutritional Appearance: average body habitus Orientation/consciousness: oriented to person and patient oriented x3 Limitations: no limitations HENMT: Head: Yes normal to inspection Ears: external ears normal General nose exam: Normal external nose present Mouth: Normal oral and palatal mucosa present and oropharynx normal Throat: Yes posterior oropharynx normal Eyes: General: appearance normal, both eyes and all related structures Neck: Other: supple Neck: Yes normal visual inspection Chest: Chest palpation & inspection: normal inspection of the chest Resp: Auscultation: clear to auscultation bilaterally Cardio: Jugular venous distension: no JVD Rate: regular rate Rhythm: regular rhythm Heart sounds: S1 normal heart sound present and S2 normal heart sound present GI: Inspection: Yes normal to inspection Palpation (GI): Soft to palpation, nontender and No hepatosplenomegaly present Auscultation: normal bowel sounds : General: Yes no CVA tenderness Back/Spine/Pelvis: Back: no CVA tenderness Skin: General skin exam: no rashes or lesions noted Neuro: General: oriented to person and patient oriented x3 Cranial nerves: Yes CN's II-XII intact bilaterally Motor exam (neuro): 5/5 motor strength present throughout Sensory Exam: No Sensory deficit (Neuro) Extrem: General: Yes normal to inspection Psych: Appearance: grossly normal Course Reevaluation(s) Reevaluation #1: Discussed with Dr. Dejesus who will see patient in outpatient Time: 15:49 MDM - Abdominal Pain Lab Data Result diagrams: 06/16/21 12:43 06/16/21 12:43 Labs: Lab Results 06/16/21 06/16/21 06/16/21 Range/Units 12:43 12:43 13:47 WBC 7.7 (4.8-10.8) X10*3/uL RBC 3.99 L (4.20-5.50) X10*6/uL Hgb 10.1 L (12.0-16.0) g/dl Hct 32.1 L (37-47) % MCV 80.5 (80-98) fL MCH 25.3 L (27.0-33.0) pg MCHC 31.5 (31.0-35.0) g/dl RDW 15.3 (11.0-16.0) % Plt Count 390 (160-400) X10*3/uL MPV 10.0 (9.4-12.3) fL Immature Gran % (Auto) 0.4 (0.0-0.4) % Neut % (Auto) 80.5 H (45-73) % Lymph % (Auto) 10.1 L (20-40) % [place] % (Auto) 8.1 (2-11) % Eos % (Auto) 0.5 (0-4) % Baso % (Auto) 0.4 (0-2) % Lymph # (Auto) 0.8 L (1.2-4.9) X10*3/uL [place] # (Auto) 0.6 (0.1-1.2) X10*3/uL Eos # (Auto) 0.0 (0.0-0.4) X10*3/uL Baso # (Auto) 0.0 (0.0-0.2) X10*3/uL Abs Immat Gran (auto) 0.03 (0.00-0.03) X10*3/uL Absolute Neuts (auto) 6.2 (2.0-8.3) X10*3/uL Absolute Nucleated RBC 0.000 (0.0-0.012) X10*3/uL Nucleated RBC % (auto) 0.0 (0.0-0.2) /100WBC Sodium 139 (135-145) mmol/L Potassium 4.5 (3.3-5.1) mmol/L Chloride 106 (96-108) mmol/L Carbon Dioxide 24 (22-29) mmol/L Anion Gap 14 (12-20) BUN 7 L (9-16) mg/dL Creatinine 0.69 (0.5-1.4) mg/dL Estim Creat Clear Calc 73.4 Estimated GFR > 60 Random Glucose 105 (60-115) mg/dL Calcium 9.8 D (8.4-10.2) mg/dL Total Bilirubin 0.5 (0.0-1.0) mg/dL Direct Bilirubin < 0.2 (0.0-0.5) mg/dL AST 26 (5-31) U/L ALT 21 (0-31) U/L Alkaline Phosphatase 72 (39-117) U/L Total Protein 5.8 L (6.5-8.0) g/dL Albumin 3.4 L (3.5-5.0) g/dL Lipase 4 L (8-78) U/L Urine Color YELLOW Urine Appearance CLEAR Urine pH 6.0 (5.0-8.0) Ur Specific [place] <= 1.005 (1.005-1.025) Urine Protein NEG (NEG-TRACE) MG/DL Urine Glucose (UA) NEG (NEG) MG/DL Urine Ketones 15 (NEG) MG/DL Urine Blood NEG (NEG) Urine Nitrite NEG (NEG) Ur Leukocyte Esterase NEG (NEG) Imaging Data CT scan - abdomen: Radiologist's impression: IMPRESSION: Wall thickening and cystic mass in the cecum. The appendix is not identified. There are enlarged right lower quadrant small bowel mesentery lymph nodes, ascites and numerous peritoneal nodules suggestive of peritoneal carcinomatosis. Primary appendiceal tumor, primary cecal tumor and carcinoid should be considered. Atrophic-appearing pancreas. Small cysts or cystic lesions in the pancreas. Probable liver cysts. Mild diverticulosis of the colon. Discharge Plan Discharge Clinical Impression: Carcinoma of cecum, Appendix carcinoma Patient Disposition: Home, Self-Care Instructions: Colorectal Cancer (DC) Prescriptions: No Action rosuvastatin 5 mg tablet 5 mg PO DAILY Qty: 90 RF: 3 pantoprazole [Protonix] 40 mg tablet,delayed release (DR/EC) 40 mg PO BID 30 Days Qty: 60 RF: 3 senna 8.6 mg capsule 17.2 mg PO BEDTIME 30 Days Qty: 60 RF: 1 Readi-Cat 2 2 % (w/v) suspension 450 ml PO DIRECTED 1 Days Qty: 900 RF: 0 cholecalciferol (vitamin D3) 50 mcg (2,000 unit) capsule 100 mcg PO DAILY RF: 0 Probiotic 3 billion cell capsule 3,000 mmu cells PO DAILY RF: 0 simethicone 180 mg capsule 180 mg PO BID PRN (Reason: abdominal distention) 30 Days Qty: 60 RF: 3 Referrals: Melissa Graham MD [Primary Care Provider] - 1 week Lillian Lee MD [Physician] - 3 days Roldan Ayala MD [Physician] - 3 days [facility] Past Medical History Medical History Anemia Diarrhea GERD (gastroesophageal reflux disease) History of mammogram Hyperglycemia Hyperglycemia Hyperlipidemia Osteoporosis Venous insufficiency Venous ulcer Vitamin D deficiency Surgical History H/O colonoscopy History of left knee replacement Status post right knee replacement Family History Family History Mother No problems noted. 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
[2021-06-16 12:44] VITALS: BP 143/79; PULSE 95; RESP 18; TEMP 37.1; O2SAT 97
[2021-06-16 12:52] LABS: MANUAL DIFF FLAG NO
[2021-06-16 12:57] LABS: Basophils Percent Auto 0.4 % (0-2); Eosinophils Percent Auto 0.5 % (0-4); Hematocrit 32.1 % (37-47); Hemoglobin 10.1 g/dl (12.0-16.0); Imm Gran Abs Auto 0.03 X10*3/uL (0.00-0.03); Imm Gran Pct Auto 0.4 % (0.0-0.4); Lymphocytes Absolute Auto 0.8 X10*3/uL (1.2-4.9); Lymphocytes Percent Auto 10.1 % (20-40); Mean Corpuscular HGB Conc 31.5 g/dl (31.0-35.0); Mean Corpuscular Hemoglobin 25.3 pg (27.0-33.0); Mean Corpuscular Volume 80.5 fL (80-98); Monocytes Absolute Auto 0.6 X10*3/uL (0.1-1.2); Monocytes Percent Auto 8.1 % (2-11); Neutrophils Absolute Auto 6.2 X10*3/uL (2.0-8.3); Neutrophils Percent Auto 80.5 % (45-73); Platelet Count 390 X10*3/uL (160-400); Red Blood Count 3.99 X10*6/uL (4.20-5.50); Red Cell Distribution Width 15.3 % (11.0-16.0); White Blood Count 7.7 X10*3/uL (4.8-10.8)
[2021-06-16 13:14] LABS: Alanine Aminotransferase 21 U/L (0-31); Albumin Level 3.4 g/dL (3.5-5.0); Alkaline Phosphatase 72 U/L (39-117); Anion Gap 14 (12-20); Aspartate Amino Transferase 26 U/L (5-31); Bilirubin Direct < 0.2 mg/dL (0.0-0.5); Bilirubin Total 0.5 mg/dL (0.0-1.0); Blood Urea Nitrogen 7 mg/dL (9-16); Calcium 9.8 mg/dL (8.4-10.2); Carbon Dioxide 24 mmol/L (22-29); Chloride 106 mmol/L (96-108); Creatinine Clr Calc Pharmacy 73.4; Estimated Glomerular Filt Rate > 60; Glucose Random 105 mg/dL (60-115); Lipase 4 U/L (8-78); Potassium 4.5 mmol/L (3.3-5.1); Sodium 139 mmol/L (135-145); Total Protein 5.8 g/dL (6.5-8.0)
[2021-06-16] MEDS: ondansetron HCL 4 MG/2 ML VIAL IVPUSH (13:50)
[2021-06-16 14:02] LABS: Appearance Urine CLEAR; Color Urine YELLOW; Glucose Urine UA NEG (NEG); Leukocyte Esterase Urine NEG (NEG); Nitrite Urine NEG (NEG); Specific Gravity - Urine <= 1.005 (1.005-1.025); Urine Blood NEG (NEG); Urine Ketones 15 MG/DL (NEG); Urine Protein NEG (NEG-TRACE)
[2021-06-16] MEDS: iohexoL 350 MG/ML 100 ML INFUS..BTL IV (14:09)
[2021-06-16 14:19] VITALS: BP 146/77; PULSE 11; RESP 18; TEMP 36.6; O2SAT 96
[2021-06-16 16:23] VITALS: BP 148/79; PULSE 106; RESP 20; TEMP 37.1; O2SAT 95
[2021-06-21 16:01] LABS: Chromogranin A 1019 ng/mL (ADULTS: <311)
== END 2021-06-16 17:19 | disposition home or self-care (01) ==
PROVIDERS: Emergency Provider Emergency Medicine; PCP Internal Medicine
DX: C18.0 Malignant neoplasm of cecum (principal); C18.1 Malignant neoplasm of appendix
CPT/HCPCS: 36415; 74177; 80048; 80076; 81003; 82378; 83690; 85025; 86316; 96374; 99284; J2405; Q9967

== ENCOUNTER 2021-06-19 10:04 | Outpatient (REF) | payer OTHER, SELFPAY ==
[2021-06-19 10:40] LABS: Hematocrit 33.9 % (37-47); Hemoglobin 10.6 g/dl (12.0-16.0); Mean Corpuscular HGB Conc 31.3 g/dl (31.0-35.0); Mean Corpuscular Hemoglobin 25.1 pg (27.0-33.0); Mean Corpuscular Volume 80.3 fL (80-98); Mean Platelet Volume 10.3 fL (9.4-12.3); Platelet Count 442 X10*3/uL (160-400); Red Blood Count 4.22 X10*6/uL (4.20-5.50); Red Cell Distribution Width 15.3 % (11.0-16.0); White Blood Count 7.9 X10*3/uL (4.8-10.8)
[2021-06-19 10:51] LABS: Estimated Average Glucose 134 mg/dL; Hemoglobin A1C 124.3343 umol/L; Hemoglobin A1c % 6.3 %
[2021-06-19 11:08] LABS: Alanine Aminotransferase 25 U/L (0-31); Albumin Level 3.6 g/dL (3.5-5.0); Alkaline Phosphatase 78 U/L (39-117); Anion Gap 18 (12-20); Aspartate Amino Transferase 29 U/L (5-31); Bilirubin Total 0.3 mg/dL (0.0-1.0); Blood Urea Nitrogen 8 mg/dL (9-16); Calcium 10.4 mg/dL (8.4-10.2); Carbon Dioxide 23 mmol/L (22-29); Chloride 103 mmol/L (96-108); Estimated Glomerular Filt Rate > 60; Glucose Fasting 115 mg/dL (60-99); Potassium 4.7 mmol/L (3.3-5.1); Sodium 139 mmol/L (135-145); Total Protein 6.1 g/dL (6.5-8.0)
== END 2021-06-19 10:05 | disposition home or self-care (01) ==
LOC: HO.LAB 10:04
PROVIDERS: Absent Provider Surgery; PCP Internal Medicine; Visit Provider Internal Medicine
DX: D64.9 Anemia, unspecified (principal); E78.5 Hyperlipidemia, unspecified; R73.9 Hyperglycemia, unspecified
CPT/HCPCS: 36415; 80053; 83036; 85027

== ENCOUNTER 2021-07-21 00:42 | Outpatient (REF) | payer OTHER, SELFPAY | END 2021-07-21 00:43 | disposition home or self-care (01) | LOC: HO.MMNH1L 00:42 | PROVIDERS: Visit Provider Family Medicine | DX: Z13.89 Encounter for screening for other disorder (principal) ==